=== PATIENT | male | born 1990 | race Two or more races ===

== ENCOUNTER 2024-06-17 19:50 | Emergency (ER) | payer OTHER ==
[~2024-06-17] VITALS: Ht 188 cm; Wt 113.4 kg
[2024-06-17] MEDS ORDERED: ZYRTEC10 M3 PO (20:29)
[2024-06-17] MEDS ORDERED: TRAMADOL HCL 50 MG TABLET PO STA (21:26)
== END 2024-06-17 22:49 | disposition home or self-care (01) ==
LOC: ER 19:51
DX: S42.92XA Fracture of left shoulder girdle, part unspecified, initial encounter for closed fracture (principal); X58.XXXA Exposure to other specified factors, initial encounter; Y93.89 Activity, other specified; Y92.89 Other specified places as the place of occurrence of the external cause; Y99.8 Other external cause status

== ENCOUNTER 2024-06-19 08:16 | Outpatient (CLI) | payer OTHER ==
[~2024-06-19 08:16] MED LIST: ZYRTEC10 M3 PO
== END 2024-06-19 08:26 | disposition home or self-care (01) ==
LOC: RAD 08:16
PROVIDERS: ATTEND Orthopaedic Surgery
DX: S42.225A 2-part nondisplaced fracture of surgical neck of left humerus, initial encounter for closed fracture (principal)

== ENCOUNTER 2024-06-21 11:14 | Outpatient (CLI) | payer OTHER | END 2024-06-21 11:19 | disposition home or self-care (01) | LOC: RAD 11:14 | PROVIDERS: ATTEND Orthopaedic Surgery | DX: S42.225A 2-part nondisplaced fracture of surgical neck of left humerus, initial encounter for closed fracture (principal) ==

== ENCOUNTER 2024-07-12 07:58 | Outpatient (CLI) | payer OTHER | END 2024-07-12 08:05 | disposition home or self-care (01) | LOC: RAD 07:58 | PROVIDERS: ATTEND Orthopaedic Surgery | DX: S42.225D 2-part nondisplaced fracture of surgical neck of left humerus, subsequent encounter for fracture with routine healing (principal) ==